=== PATIENT | female | born 1930 | race Caucasian/White ===

== ENCOUNTER → 2016-09-13 | Outpatient (CLI) | payer OTHER ==
[~2016-09-13] MED LIST: ADULT LOW DOSE81 MG PO; BYSTOLIC 5 MG5 M1 PO; CALCIUM + D SO1 EACH PO; CALCIUM 600 +1 EAC5 PO; CIPRO250 M1 PO; CLEOCIN HCL150 MG PO; FIORICET 50-301 EACH PO; FISH OIL 1,001000 MG PO; FLEXERIL PO; LIPOFEN150 MG PO; LIVALO2 MG PO; METHOTREXATE 22.5 MG PO; MULTIVITAMINS PO; NEXIUM40 MG PO; NORCO 5-325 TA1 EACH PO; OCUVITE TABLET1 EAC1 PO; PLAVIX 75 MG TA75 M1 PO; PREDNISONE 10 M10 M1 PO; RANEXA500 MG PO; TRAMADOL 50 MG50 MG PO; ULTRAM 50MG TAB50 MG PO; VICODIN 5-5001 EACH PO; VITAMIN D2000 UNIT PO
== END ==
LOC: CAT 13:48
DX: R91.8 Other nonspecific abnormal finding of lung field (principal)

== ENCOUNTER → 2017-01-24 | Outpatient (CLI) | payer OTHER | LOC: RAD 15:33 | DX: I51.7 Cardiomegaly (principal) ==

== ENCOUNTER 2017-05-17 13:06 | Inpatient (IN) | payer OTHER ==
[~2017-05-17] VITALS: Ht 149.9 cm; Wt 57.6 kg
--- NOTE | ~2017-05-17 | HC ---
[facility] [place] [address] CONSULTATION Name: JIL DIAZ Room #: 434-P ADM IN M.R.#: [id number] Admission: 05/17/17 Attend Phys: Froy Pascal MD Discharge: Date of : 31 Report #: [id number] THIS REPORT FOR: //name// CC: Willem Pascal INFECTIOUS DISEASES CONSULTATION REASON FOR CONSULTATION: I was asked to evaluate concerning recurrent pneumonia. HISTORY OF PRESENT ILLNESS: The patient was an 86-year-old sister of Gregoria, who resides in [place], presents today with increasing shortness of breath, minimally productive cough. She has underlying coronary artery disease, status post coronary artery bypass grafting; mediastinal histoplasmosis and recurring pneumonia that has occurred over the last year. She resides in assisted living in [place]. Because of her increased cough and shortness of breath, she was hospitalized. Denies any travel. No history of tuberculosis. Has had previous breast cancer. In 2013, had undergone a mediastinoscopy for biopsy of her mediastinal lymph nodes, which showed granulomatous process and organisms consistent with histoplasma. She has a known hiatal hernia. Denies any symptoms of aspiration. PAST MEDICAL HISTORY: Bilateral mastectomies with left breast cancer, osteoporosis, appendectomy, diverticulitis, hiatal hernia, gastric ulcer, bilateral cataracts, macular degeneration, gastroesophageal reflux, coronary artery bypass grafting, hyperlipidemia and hypertension. ALLERGIES: PENICILLIN AND SULFA. Does not know if she tolerates cephalosporins. MEDICATIONS: As noted on her MAR, which were reviewed previous, was given Levaquin in the Emergency Room. FAMILY HISTORY: Noncontributory. SOCIAL HISTORY: Nonsmoker. No significant alcohol intake. REVIEW OF SYSTEMS: No nausea, vomiting, diarrhea, abdominal pain, dysuria or frequency. Has had some left anterior chest pain on deep inspiration. Denies any hemoptysis. No headache, change in mental status, rash or mucosal ulcers. PHYSICAL EXAMINATION: VITAL SIGNS: Afebrile and hemodynamically stable. Oxygen saturation on room air was normal. GENERAL: She was alert and cooperative. She was a reasonable historian. SKIN: Unremarkable. [facility] [address] [place] [address] CONSULTATION Name: JIL DIAZ Room #: 434-P [facility] IN .R.#: [id number] Admission: 05/17/17 Attend Phys: Froy Pascal MD Discharge: Date of : 31 Report #: [id number] LYMPH: Unremarkable. HEENT: Unremarkable. NECK: Supple. LUNGS: Crackles heard in the bases bilaterally, with no consolidation or rub. HEART: Regular, without murmur. ABDOMEN: Soft, nontender. No hepatosplenomegaly or mass. EXTREMITIES: Unremarkable. LABORATORY STUDIES: Sodium 130, potassium 4.2, bicarbonate at 24 and creatinine 1.9. Liver function test normal. BNP 2239. Troponin negative. Hemoglobin 9.2, WBC 6.5 and platelet count is 257,000. Chest x-ray, bilateral lower lobe infiltrates, left greater than right. Blood culture and sputum culture pending. IMPRESSION: Bilateral pulmonary infiltrates with multiple potential causes to include aspiration pneumonia, histoplasma, community-acquired pneumonia. THE PATIENT HAS ALLERGY TO SULFA AND PENICILLIN. Would also be concerned about progression of her mediastinal adenopathy. RECOMMENDATIONS: We will continue with antibiotic coverage, including Levaquin and clindamycin. Repeat CT scan of the chest. Check sedimentation rate, histoplasma titer, urine antigen and viral respiratory panel. Agree with video swallow to assess for aspiration. <ELECTRONICALLY SIGNED> By: Evan Umanzor MD 05/21/17 1240 2211 2338 Evan Umanzor MD /nt
--- NOTE | ~2017-05-17 | HC ---
[facility] [place] [address] CONSULTATION Name: JIL DIAZ Room #: 434-P [facility] IN M.R.#: [id number] Admission: 05/17/17 Attend Phys: Froy Pascal MD Discharge: 05/23/17 Date of : 31 Report #: [id number] THIS REPORT FOR: //name// CC: Willem Pascal REASON FOR CONSULTATION: Hyponatremia. REASON FOR PRESENTATION: Shortness of breath. HISTORY OF PRESENT ILLNESS: An 86-year-old with extensive past medical history including bilateral mastectomy for breast cancer, chronic kidney disease with a baseline creatinine of around 1.5, hypertension, hyperlipidemia, status post coronary artery bypass graft. She presented complaining of worsening shortness of breath and was found to have pneumonitis that seems to be recurrent over the last year. This was associated with cough. She had this pneumonitis worked up in the past with a biopsy for the lymph nodes that showed granulomatous process with organisms consistent with histoplasmosis. On presentation, the sodium was stable at 130 and this continued to drop down to 119. I am being asked to evaluate accordingly. As I have stated, she does have a diagnosis of chronic kidney disease with a baseline creatinine of around 1.7 based on her previous values. PAST MEDICAL HISTORY: 1. Breast cancer status post bilateral mastectomy. 2. Appendectomy. 3. Hypertension. 4. Stomach ulcers. 5. Cataract surgery. 6. Gastroesophageal reflux disease. 7. Coronary artery disease post stenting then coronary artery bypass graft. 8. Hyperlipidemia. MEDICATIONS ON PRESENTATION: Plavix, aspirin, Bystolic, esomeprazole, Ranexa. ALLERGIES: PENICILLIN, SULFA. REVIEW OF SYSTEMS: GENERAL: Significant for weakness. CARDIOVASCULAR: Significant for shortness of breath. PULMONARY: Cough and shortness of breath. GASTROINTESTINAL: No nausea or vomiting. GENITOURINARY: No frequency or urgency. MUSCULOSKELETAL: No back pain, no joints pain. SKIN: No rash or ulcerations. NEUROLOGICAL: Some weakness. [facility] [address] [place] [address] CONSULTATION Name: JIL DIAZANOR Room #: 434-P [facility] IN [facility].#: [id number] Admission: 05/17/17 Attend Phys: Froy Pascal MD Discharge: 05/23/17 Date of : 31 Report #: [id number] FAMILY HISTORY: Significant for hypertension. PHYSICAL EXAMINATION: GENERAL: She is alert, oriented, in no apparent distress. VITAL SIGNS: Most recent blood pressure 153/63, temperature 36.3. HEAD AND NECK: No jugular venous distention, no bruit, no thyromegaly. CHEST: Decreased air entry bilaterally with rhonchi. CARDIOVASCULAR: Regular, with no rub detected. ABDOMEN: Soft, nontender. No hepatosplenomegaly. LOWER EXTREMITIES: Trace edema. LABORATORY DATA: Reviewed. Sodium is stable at 119. She has mild acidosis with a carbon dioxide of 19, BUN is 31, creatinine of 1.7. IMAGING: Including her swallowing studies, CT is reviewed, renal ultrasound reviewed. ASSESSMENT, IMPRESSION, PLAN: 1. Hyponatremia. 2. Chronic kidney disease. 3. History of recurrent pneumonitis with biopsy proven histo in the past. 4. History of bilateral mastectomy for breast cancer. 5. We will initiate the appropriate workup for hyponatremia with blood studies, thyroid studies. 6. Fluid restriction. 7. Salt tablets. 8. One time Lasix. We will continue to follow along. <ELECTRONICALLY SIGNED> By: William Presley MD 05/30/17 0939 1018 1101 William Presley MD /nt
--- NOTE | ~2017-05-17 | S ---
[facility] [place] [address] SURGICAL PATH RPT PROCEDURE Name: JIL KLINE KARISSA Room #: 434-P DIS IN M.R.#: [id number] Admission: 05/17/17 Date of : 31 Discharge: 05/23/17 Report #: [id number] Path Case #: [id number] PATHOLOGY REPORT COLLECTION DATE: 05/23/2017 RECEIVED DATE: 05/24/2017 SUBMITTING PHYS: Dr. Marcai Ríos OTHER PHYS: Dr. Froy Staples SPECIMEN(S) RECEIVED: A.Bx of antral * * * * * * * * * * * * FINAL DIAGNOSIS: Gastric mucosa, antral erythema, endoscopic biopsy: - Moderate reactive gastropathy with fibrotic lamina propria and congested vessels within lamina propria, history of antral erythema. - Focal intestinal metaplasia present. - Negative for atrophy, or dysplasia. - Negative for Helicobacter pylori. COMMENT: Well controlled Helicobacter pylori immunohistochemical stain performed on block A1 - negative. (IUV:pit; 05/25/2017) PATHOLOGIST: Aracelis Coelho M.D. REPORT ELECTRONICALLY SIGNED BY: Aracelis Coelho M.D. DATE/TIME: 05/25/2017 13:43 * * * * * * * * * * * * GROSS PATHOLOGY: The specimen is received in formalin, labeled "Jil Kline, BX of antral erythema," and consists of 2 fragments of mackay soft tissue measuring 0.5 x 0.4 x 0.1 cm and 0.3 x 0.2 x 0.1 cm. They are entirely submitted in cassette A1. (SDY; 05/24/2017) CLINICAL HISTORY: Dysphagia Gastritis INITIAL CPT CODE(S): A; 49495, 75358 [facility] [address] [facility] [place] [address] SURGICAL PATH RPT PROCEDURE Name: JIL KLINEANOR Room #: 434-P DIS IN M.R.#: [id number] Admission: 05/17/17 Date of : 31 Discharge: 05/23/17 Report #: [id number] Path Case #: [id number] Professional services performed by [facility] at [address] [place], [place] [address] Technical services performed by [facility] at [address] [place] [address], [facility] [address] [address]. [facility] [address] [place] [address] PHONE: [phone] DIRECTOR: Vinnie Lang M.D. * * * END OF REPORT * * *
--- NOTE | ~2017-05-17 | P ---
[facility] [place] [address] PROCEDURE REPORT Name: JIL DIAZ Room #: 434-P [facility] IN M.R.#: [id number] Admission: 05/17/17 Attend Phys: Froy Pascal MD Discharge: 05/23/17 Date of : 31 Report #: [id number] THIS REPORT FOR: //name// CC: Willem Jhoanradha Shah MD DATE OF SERVICE: 05/23/2017 EGD with biopsies and esophageal dilatation: The patient of Dr. Froy Pascal. 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 EGD is being performed to try to identify this and dilate it. Informed consent for this procedure was obtained prior to the administration of any medication. The risks of the procedure which include bleeding, perforation, infection, complications of sedation and the possibility I could miss something have been explained to the patient. She has indicated her consent by signing. Propofol was slowly titrated before and during this procedure for patient comfort by the anesthesia service. The ShowMe.tvn upper videoscope was introduced through the upper esophageal sphincter and advanced under direct visualization to the descending duodenum. Findings are noted on withdrawal of the scope. The duodenal mucosa appears normal throughout its entirety. Pylorus, normal mucosa. Antrum, in the prepyloric area of the antrum, there is erythematous mucosa and biopsies were obtained x 2 from this prepyloric erythema for histopathology. Good hemostasis was noted after those biopsies. Body, normal mucosa. Cardia and fundus, normal mucosa. Retroflex view does reveal the presence of a hiatal hernia. Scope was withdrawn to the esophagus. The Z-line is appropriately located at the top of the gastric folds and this is at 30 cm from the incisors. I think the hiatal hernia has posterior esophagus significantly up into her chest. The entire esophagus is very tortuous because of this hiatal hernia and its disposition of the esophagus. The esophageal mucosa itself appears normal throughout its entirety and there did seem to be a narrowing of the very proximal esophagus at the level of the cricopharyngeal muscles. The scope was advanced down into the stomach. Again, a guidewire was advanced through the scope. The scope was withdrawn over the guidewire. Then, a #48 Arabic and subsequently a #51 Arabic Savary dilators were passed over the guidewire without difficulty. The guidewire and the dilators were removed. Then, the Fujinon upper videoscope was reintroduced through the upper esophageal sphincter much easier this time and advanced under direct visualization down to the duodenal bulb again. Findings are noted on withdrawal of the scope. The duodenal bulb [address] [address] PROCEDURE REPORT Name: JIL DIAZANOR Room #: 434-P [facility] IN M.R.#: [id number] Admission: 05/17/17 Attend Phys: Froy Pascal MD Discharge: 05/23/17 Date of : 31 Report #: [id number] appears normal. Pylorus, normal mucosa. Antrum, erythematous mucosa as before. Body, normal mucosa. Cardia and fundus, normal mucosa. Retroflex view did not reveal any abnormalities. The scope was withdrawn to the esophagus. The Z-line is located similarly as before. The esophageal mucosa appears normal throughout its entirety. The scope was withdrawn. The patient went to the recovery area in stable condition. She tolerated the procedure well. IMPRESSION: 1. Antral erythema, prepyloric area. 2. Passage of a #48 Arabic and #51 Arabic Savary dilators over a guidewire as above in an attempt to stretch the cricopharyngeal muscles so that her solid food dysphagia will resolve, this will not likely help with her liquid dysphagia and aspiration, however. My recommendations were for her to resume her previous diet and medications. Thank you very much once again for allowing me to participate in her care. <ELECTRONICALLY SIGNED> By: Marcia Ríos DO 05/24/17 2134 1456 0144 Marcia Ríos DO /nt
--- NOTE | ~2017-05-17 | 2DMMODE ---
[facility] [address] [place] [address] 2 D/M-MODE ECHOCARDIOGRAM Name: JIL DIAZ Room #: 434-P [facility] IN ..#: [id number] Admission: 05/17/17 Attend Phys: Froy Pascal MD Discharge: Date of : 31 Date of Service: 05/21/17 1323 Report #: [id number] THIS REPORT FOR: //name// APPROVED REPORT Study performed: 05/21/2017 11:15:17 EXAM: Comprehensive 2D, Doppler, and color-flow Echocardiogram Patient Location: Bedside Room #: 434 Status: routine BSA: 1.52 BP: 176/96 mmHg Other Information Study Quality: Good Indications Dyspnea CAD Hypertension/HDD CABG 2D Dimensions RVDd: 42.41 mm LVEF(%): 52.05 (>50%) IVSd: 12.04 (7-11mm) LVOT Diam: 16.61 (18-24mm) LVDd: 40.18 mm PWd: 12.64 (7-11mm) Ascending Ao: 25.52 (22-36mm) LVDs: 29.62 (25-40mm) Aortic Root: 23.74 mm IVC: 16.00 mm House's LVEF: 52.05 % Volumes Left Atrial Volume (Systole) Single Plane 4CH: 56.74 mL Single Plane 2CH: 60.24 mL LA ESV Index: 41.00 mL/m2 Aortic Valve AoV Peak Carter.: 1.91 m/s AO Peak Gr.: 15.66 mmHg LVOT Max P.46 mmHg LVOT Max V: 0.78 m/s KALEE Vmax: 0.89 cm2 Mitral Valve [facility] [place] [address] [place] [address] 2 D/M-MODE ECHOCARDIOGRAM Name: JIL DIAZANOR Room #: 434-P [facility] IN ..#: [id number] Admission: 05/17/17 Attend Phys: Froy Pascal MD Discharge: Date of : 31 Date of Service: 05/21/17 1323 Report #: [id number] E/A Ratio: 1.4 MV Decel. Time: 129.65 ms MV E Max Carter.: 1.45 m/s MV A Carter.: 1.05 m/s MV PHT: 37.60 ms IVRT: 83.04 ms Pulmonary Valve PV Peak Carter.: 1.08 m/s PV Peak Gr.: 4.65 mmHg Pulmonary Vein P Vein S: 0.57 m/s P Vein D: 0.92 m/s P Vein S/D Ratio: 0.62 Tricuspid Valve TR Peak Carter.: 3.25 m/s RAP Estimate: 5.00 mmHg TR Peak Gr.: 42.29 mmHg PA Pressure: 47.00 mmHg Left Ventricle The left ventricle is normal size. Regional wall motion is grossly normal. Mild concentric left ventricular hypertrophy. The left ventricular systolic function is normal. The left ventricular ejection fraction is within the normal range. LVEF is 55%. Grade II - pseudonormal filling dynamics. Right Ventricle Right ventricle is dilated. The right ventricular systolic function is normal. Atria Left atrium is dilated. Right atrium size is normal. Aortic Valve The Aortic valve is mildly calcified. Trace to mild aortic regurgitation. There is no aortic valvular stenosis. Mitral Valve Mild mitral annular calcification Moderate to moderately severe mitral regurgitation. No evidence of mitral valve stenosis. Tricuspid Valve The tricuspid valve is normal in structure. Moderate to severe tricuspid regurgitation. PAP is estimated at [address] [address] 2 D/M-MODE ECHOCARDIOGRAM Name: JIL DIAZ KARISSA Room #: 434-P [facility] IN ..#: [id number] Admission: 05/17/17 Attend Phys: Froy Pascal MD Discharge: Date of : 31 Date of Service: 05/21/17 1323 Report #: [id number] Pulmonic Valve The pulmonary valve is normal in structure. Trace pulmonic regurgitation. Great Vessels The aortic root is normal in size. IVC is normal in size and collapses >50% with inspiration. Pericardium There is no pericardial effusion. <Conclusion> The left ventricular systolic function is normal. Regional wall motion is grossly normal. LVEF is 55%. Grade II diastolic dysfunction Right ventricle is mildly dilated. Left atrium is dilated. The aortic valve is mildly calcified. Trace to mild aortic regurgitation, no stenosis. Mild mitral annular calcification. Moderate to moderately severe mitral regurgitation. Moderate to severe tricuspid regurgitation. PAP is estimated at 47 mmHg. There is no pericardial effusion. <ELECTRONICALLY SIGNED> By: Timbo Dong MD, FACC 05/21/17 1323 22 132 Timbo Dong MD, FACC /INF
--- NOTE | ~2017-05-17 | EKG ---
[place] [address] [address] [facility] [email or web address] [address] ELECTROCARDIOGRAM REPORT Name: JIL DIAZ Room #: 170-7 ADM IN M.R.#: [id number] Admission: 05/17/17 Attend Phys: Froy Pascal MD Discharge: Date of : 31 Report #: [id number] THIS REPORT FOR: //name// [facility] ED Test Date: 2017-05-17 Test Time: 15:01:07 Pat Name: JIL DIAZ Department: Room: 170 Gender: F Failure Analysis Technician: MZOOK : 1930 Requested By: Evan Butler Order Number: [id number] MD: Timbo Dong Measurements Intervals [place] Rate: 64 P: 0 MA: 237 QRS: -16 QRSD: 122 T: 47 QT: 488 QTc: 504 Interpretive Statements Sinus rhythm Prolonged MA interval Nonspecific T abnrm, anterolateral leads Compared to ECG 12/25/2012 07:45:48 First degree AV block now present Electronically Signed On 05-17-2017 17:08:08 MILLER APPRENTICE by Timbo Dong [email or web address] <ELECTRONICALLY SIGNED> By: Timbo Dong MD, [facility] 05/17/17 2198 1501 1501 Timbo Dong MD, [facility] /EPI
--- NOTE | ~2017-05-17 | HC ---
[facility] [place] [address] CONSULTATION Name: JIL DIAZ Room #: 434-P ADM IN M.R.#: [id number] Admission: 05/17/17 Attend Phys: Froy Pascal MD Discharge: Date of : 31 Report #: [id number] THIS REPORT FOR: //name// CC: Willem Staples Ricardo Crawford DATE OF SERVICE: 05/17/2017 REFERRING PROVIDER: Ricardo Gamble MD REASON FOR CONSULTATION: Pneumonia. CHIEF COMPLAINT: Shortness of breath. HISTORY OF PRESENT ILLNESS: Our group was asked to see the patient in consultation while hospitalized at [facility]. A pleasant 86-year-old woman followed by my partner, Dr. Cliff Johnson in our office for recurrent pneumonias, but has not had any for quite some time. She had been in her usual state of health, reasonably functional; however, states she had a recent fall several months ago while in [place], required some rehabilitative care, no significant fractures. About two days ago, she started having some increasing shortness of breath and nonproductive cough. No fevers, chills or sweats. Some wheezes and some chest tightness associated with severe coughing. She does have a known history of coronary artery disease, but has not had any ischemic chest pain. Denies any reflux complaints at this time. She does have a history of significant hiatal hernia. No recent problems with myocardial ischemia or pneumonias in the past few years. ALLERGIES: INCLUDE PENICILLIN AND SULFA. PAST MEDICAL HISTORY: 1. History of breast cancer. 2. Coronary artery disease. 3. History of diverticulosis. 4. Hyperlipidemia. 5. Hypertension. PAST SURGICAL HISTORY: Includes: 1. Mastectomy in 1999. 2. History of coronary stent placement in 2012. 3. Coronary artery bypass grafting x 3 in 2007. SOCIAL HISTORY: The patient is a never smoker, no alcohol consumption. 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 [facility] [address] [place] [address] CONSULTATION Name: JIL DIAZ Room #: 434-P [facility] IN M.R.#: [id number] Admission: 05/17/17 Attend Phys: Froy Pascal MD Discharge: Date of : 31 Report #: [id number] FAMILY HISTORY: Noncontributory due to advanced age. REVIEW OF SYSTEMS: CONSTITUTIONAL: Denies any fevers, chills or sweats. ENT: No upper respiratory congestion, rhinorrhea or dysphagia. CARDIOVASCULAR: Chest pain as described in the HPI. GASTROINTESTINAL: History of hiatal hernia. Denies any significant reflux, nausea or vomiting. GENITOURINARY: No dysuria and no frequency. INTEGUMENT: Denies any new rash. MUSCULOSKELETAL: No new joint pains or swelling, recent weakness and falls noted, but states she is back to baseline, volunteering again. PHYSICAL EXAMINATION: VITAL SIGNS: Afebrile, pulse 70s, respiratory rate 20, blood pressure 171/80 and oxygen saturation 100% on room air. GENERAL: This is a pleasant elderly woman in no distress. ENT: Clear oropharynx. No thrush. Mallampati 2 airway. NECK: Supple, no lymphadenopathy. BACK: Revealed some kyphosis. LUNGS: Diminished with basilar inspiratory crackles, left greater than right. No significant wheezes. CARDIOVASCULAR: Heart is regular. No murmurs noted. ABDOMEN: Soft, nontender and no masses. EXTREMITIES: With no significant edema. They are warm with 2+ pulses. INTEGUMENT: Without rash. LABORATORY DATA: Chest x-ray reveals significant left atrial enlargement, splaying of the fidel, prior sternotomy, large hiatal hernia, left greater than right basilar infiltrates noted and poor inspiratory effort, kyphosis of the thoracic spine. White blood cell count 7000, hemoglobin 9, hematocrit 26 and platelet count 257. Sodium 130, potassium 4.2, chloride 96, bicarbonate 24, BUN 23, creatinine 1.9 and glucose 119. ProBNP 2239. Albumin normal. IMPRESSION: 1. 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 2. Anemia. 3. History of coronary artery disease. SUGGESTIONS: 1. Respiratory viral panel. 2. Sputum and blood cultures. 3. Continue with Levaquin. [address] [address] CONSULTATION Name: JIL DIAZ Room #: 434-P [facility] IN M.R.#: [id number] Admission: 05/17/17 Attend Phys: Froy Pascal MD Discharge: Date of : 31 Report #: [id number] 4. Infectious Disease consultation. 5. Systemic steroids with taper. 6. Bronchodilators. 7. GI consult noted. 8. Inpatient care. 9. Follow up chest x-ray in the a.m. 10. Additional recommendation to follow. Thank you for requesting our suggestions. <ELECTRONICALLY SIGNED> By: Breezy Haney MD 05/18/17 1726 1811 0607 Breezy Haney MD /nt
--- NOTE | ~2017-05-17 | EKG ---
[address] [address] ELECTROCARDIOGRAM REPORT Name: JIL DIAZ Room #: 434-P ADM IN M.R.#: [id number] Admission: 05/17/17 Attend Phys: Froy Pascal MD Discharge: Date of : 32 Report #: [id number] THIS REPORT FOR: //name// [facility] Test Date: 2017-05-18 Test Time: 09:33:42 Pat Name: JIL DIAZ Department: Room: 434 P Gender: F Coating Supervisor: CECILY : 1930 Requested By: Ricardo Gamble Order Number: [id number] MD: Jordon Pope Measurements Intervals [place] Rate: 82 P: 78 IA: 240 QRS: -14 QRSD: 96 T: 108 QT: 427 QTc: 499 Interpretive Statements Sinus rhythm Prolonged IA interval Borderline repolarization abnormality Borderline prolonged QT interval Compared to ECG 05/17/2017 15:01:07 No significant changes Electronically Signed On 05-19-2017 8:21:53 [employer] by Jordon Pope [email or web address] <ELECTRONICALLY SIGNED> By: Jordon Pope MD 05/19/17 08 2 2 MD CORNELL Rodriguez
[2017-05-17 13:17] VITALS: BP 171/80
[2017-05-17 15:15] LABS: HEMOGLOBIN 9.2 gm/dL (12.0-15.0); MCH 28.1 pg (26.0-34.0); MCHC 35.3 g/dL (28.0-37.0); MCV 79.7 fL (80.0-100.0); PLATELET COUNT 257 thou/uL (150-400); RBC 3.27 mil/uL (4.20-5.00); RDW 14.4 % (10.5-14.5); WBC 6.5 thou/uL (4.0-11.0)
[2017-05-17 15:24] LABS: ANION GAP 10 mmol/L (7-16); BUN 23 mg/dL (7-18); CALCIUM 9.2 mg/dL (8.5-10.1); CHLORIDE 96 mmol/L (98-107); CO2 24 mmol/L (21-32); CREATININE 1.9 mg/dL (0.6-1.0); GLUCOSE 119 mg/dL (74-106); POTASSIUM 4.2 mmol/L (3.5-5.1); SODIUM 130 mmol/L (136-145)
[2017-05-17 15:32] LABS: ALBUMIN 3.8 g/dL (3.4-5.0); MAGNESIUM 1.9 mg/dL (1.8-2.4); SGOT 14 U/L (15-37); SGPT 17 U/L (30-65); TOTAL BILIRUBIN 0.3 mg/dL (<0.1-1.0); TOTAL PROTEIN 7.4 g/dL (6.4-8.2); TROPONIN-I < 0.04 ng/mL (<0.06)
[2017-05-17 15:47] LABS: ABSOLUTE NEUTROPHILS 5.8 thou/uL (1.4-8.2)
[2017-05-17 15:48] LABS: ANISOCYTOSIS 1+; HYPOCHROMASIA 1+; MICROCYTES 1+; POLYCHROMASIA OCCASIONAL
[2017-05-17] MEDS ORDERED: PROTONIX40 M1 PO (17:24)
[2017-05-17] MEDS ORDERED: PRAVACHOL20 MG PO (17:24)
[2017-05-17] MEDS ORDERED: ERGOCALCIF50000 UNIT PO (17:24)
[2017-05-17] MEDS ORDERED: RANEXA500 MG PO (17:31)
[2017-05-17 18:25] VITALS: BP 151/61
[2017-05-17 19:34] VITALS: BP 166/52
[2017-05-17 20:13] VITALS: BP 167/72
[2017-05-18 01:39] VITALS: BP 144/64
[2017-05-18 06:03] VITALS: BP 136/51
[2017-05-18 07:15] VITALS: BP 122/69
[2017-05-18 16:15] VITALS: BP 129/62
[2017-05-18 19:33] VITALS: BP 123/58
[2017-05-19 05:34] VITALS: BP 118/48
[2017-05-19 07:15] VITALS: BP 153/71
[2017-05-19 16:00] VITALS: BP 124/53
[2017-05-19 19:32] LABS: URINE BILIRUBIN NEGATIVE (Negative); URINE BLOOD NEGATIVE (Negative); URINE CLARITY CLEAR; URINE COLOR YELLOW; URINE GLUCOSE-RANDOM* NEGATIVE (Negative); URINE KETONES NEGATIVE (Negative); URINE LEUKOCYTES-REFLEX NEGATIVE (Negative); URINE NITRITE-REFLEX NEGATIVE (Negative); URINE PROTEIN (DIPSTICK) NEGATIVE (Negative); URINE SPECIFIC GRAVITY 1.025 (1.005-1.035); URINE UROBILINOGEN 0.2 E.U./dl (0.2-1.0)
[2017-05-19 20:18] VITALS: BP 134/98
[2017-05-20 04:07] LABS: HEMATOCRIT 20.7 % (37.0-47.0); HEMOGLOBIN 7.3 gm/dL (12.0-15.0); MCH 27.2 pg (26.0-34.0); MCHC 35.5 g/dL (28.0-37.0); MCV 76.6 fL (80.0-100.0); RBC 2.7 mil/uL (4.20-5.00); RDW 14.8 % (10.5-14.5); WBC 10.1 thou/uL (4.0-11.0)
[2017-05-20 04:26] LABS: ALBUMIN 3.1 g/dL (3.4-5.0); CALCIUM 7.9 mg/dL (8.5-10.1); PHOSPHORUS 4.3 mg/dL (2.5-4.9); POTASSIUM 4.9 mmol/L (3.5-5.1)
[2017-05-20 04:35] VITALS: BP 161/72
[2017-05-20 06:29] LABS: CALCIUM 7.8 mg/dL (8.5-10.1); CREATININE 2.1 mg/dL (0.6-1.0); POTASSIUM 4.8 mmol/L (3.5-5.1)
[2017-05-20 07:10] VITALS: BP 145/70
[2017-05-20 12:48] LABS: URINE BILIRUBIN NEGATIVE (Negative); URINE BLOOD NEGATIVE (Negative); URINE CLARITY CLEAR; URINE COLOR YELLOW; URINE GLUCOSE-RANDOM* NEGATIVE (Negative); URINE KETONES NEGATIVE (Negative); URINE LEUKOCYTES NEGATIVE (Negative); URINE NITRITE NEGATIVE (Negative); URINE PROTEIN (DIPSTICK) NEGATIVE (Negative); URINE SPECIFIC GRAVITY 1.015 (1.005-1.035); URINE UROBILINOGEN 0.2 E.U./dl (0.2-1.0)
[2017-05-20 12:53] LABS: URINE PROTEIN-RANDOM* 15.6 mg/dL (<11.9)
[2017-05-20 15:18] VITALS: BP 158/64
[2017-05-20 19:37] VITALS: BP 130/53
[2017-05-21 04:26] VITALS: BP 151/78
[2017-05-21 05:29] LABS: ALBUMIN 3.3 g/dL (3.4-5.0); CALCIUM 8.1 mg/dL (8.5-10.1); CREATININE 1.8 mg/dL (0.6-1.0); PHOSPHORUS 4.1 mg/dL (2.5-4.9); POTASSIUM 4.7 mmol/L (3.5-5.1); TOTAL BILIRUBIN 0.4 mg/dL (<0.1-1.0)
[2017-05-21 09:07] VITALS: BP 176/96
[2017-05-21 15:42] VITALS: BP 143/72
[2017-05-21 19:08] LABS: HISTOPLASMA MYCELIAL-ID Negative (Negative)
[2017-05-21 19:38] VITALS: BP 174/75
[2017-05-22 03:08] VITALS: BP 154/82
[2017-05-22 05:43] LABS: HEMATOCRIT 23.7 % (37.0-47.0); HEMOGLOBIN 8.1 gm/dL (12.0-15.0); MCH 27.1 pg (26.0-34.0); MCHC 34.2 g/dL (28.0-37.0); MCV 79.3 fL (80.0-100.0); PLATELET COUNT 289 thou/uL (150-400); RBC 2.99 mil/uL (4.20-5.00); RDW 14.5 % (10.5-14.5)
[2017-05-22 05:55] LABS: CALCIUM 8.3 mg/dL (8.5-10.1); CREATININE 1.7 mg/dL (0.6-1.0); POTASSIUM 4.4 mmol/L (3.5-5.1)
[2017-05-22 07:05] VITALS: BP 153/63
[2017-05-22 07:41] LABS: ABSOLUTE NEUTROPHILS 8.8 thou/uL (1.4-8.2); ANISOCYTOSIS 1+; ATYPICAL LYMPHS 1 %; MICROCYTES 1+
[2017-05-22 10:54] LABS: ALBUMIN 3.2 g/dL (3.4-5.0); CALCIUM 8.2 mg/dL (8.5-10.1); CREATININE 1.9 mg/dL (0.6-1.0); POTASSIUM 4.4 mmol/L (3.5-5.1)
[2017-05-22 10:56] LABS: % SATURATION 7 % (20-39); IRON 21 ug/dL (50-170); TIBC 314 ug/dL (250-450)
[2017-05-22 15:25] VITALS: BP 148/63
[2017-05-22 19:44] VITALS: BP 157/78
[2017-05-22 21:10] LABS: HISTOPLASMA MYCELIAL-CF Negative (Neg:<1:2)
[2017-05-23 01:09] LABS: ADENOVIRUS Negative (Negative); INFLUENZA A Negative (Negative); INFLUENZA B Negative (Negative); METAPNEUMOVIRUS Negative (Negative); PARAINFLUENZA 1 Negative (Negative); PARAINFLUENZA 2 Negative (Negative); PARAINFLUENZA 3 Negative (Negative); RHINOVIRUS Negative (Negative); RSV A Negative (Negative); RSV B Negative (Negative)
[2017-05-23 03:24] VITALS: BP 148/63
[2017-05-23 05:28] LABS: BASOPHILS 0.1 % (0.0-2.0); EOSINOPHILS 0.2 % (0.0-3.0); HEMATOCRIT 23.5 % (37.0-47.0); HEMOGLOBIN 7.9 gm/dL (12.0-15.0); LYMPHOCYTES 8.1 % (24.0-44.0); MCH 26.5 pg (26.0-34.0); MCHC 33.6 g/dL (28.0-37.0); MCV 78.7 fL (80.0-100.0); MONOCYTES 11.6 % (1.0-8.0); PLATELET COUNT 246 thou/uL (150-400); RBC 2.98 mil/uL (4.20-5.00); RDW 14.4 % (10.5-14.5); WBC 8.7 thou/uL (4.0-11.0)
[2017-05-23 05:38] LABS: CALCIUM 8.3 mg/dL (8.5-10.1); CREATININE 1.8 mg/dL (0.6-1.0); POTASSIUM 3.7 mmol/L (3.5-5.1)
[2017-05-23 07:54] VITALS: BP 143/59
[2017-05-23] MEDS ORDERED: CLEOCIN HCL150 MG PO (08:37)
[2017-05-23] MEDS ORDERED: LEVAQUIN 500 M500 M1 PO (08:37)
[2017-05-23] MEDS ORDERED: SODIUM CHLORIDE1 GM PO (08:37)
[2017-05-23 15:02] VITALS: BP 143/59
== END 2017-05-23 17:09 | disposition home or self-care (01) | DRG 177 ==
LOC: ER 13:06 → EROBS 16:20 → 4S 16:20 → ENTRNSPT 05-23 15:51 → EDTRNSPTSTS 05-23 15:53 → 4S 05-23 17:09
PROVIDERS: Emergency Medicine; Family Medicine; Hospitalist; Internal Medicine; Internal Medicine Pulmonary Disease; Nurse Practitioner; Nurse Practitioner Family; Specialist
PROC: 0D758ZZ Dilation of Esophagus, Via Natural or Artificial Opening Endoscopic (ICD-10-PCS; principal; 2017-05-23)
PROC: 0DB68ZX Excision of Stomach, Via Natural or Artificial Opening Endoscopic, Diagnostic (ICD-10-PCS; principal; 2017-05-23)
DX: J69.0 Pneumonitis due to inhalation of food and vomit (principal); E43 Unspecified severe protein-calorie malnutrition; E87.1 Hypo-osmolality and hyponatremia; N17.9 Acute kidney failure, unspecified; E87.2 Acidosis; M81.0 Age-related osteoporosis without current pathological fracture; Z96.1 Presence of intraocular lens; K21.9 Gastro-esophageal reflux disease without esophagitis; E78.00 Pure hypercholesterolemia, unspecified; H35.30 Unspecified macular degeneration; I12.9 Hypertensive chronic kidney disease with stage 1 through stage 4 chronic kidney disease, or unspecified chronic kidney disease; N18.9 Chronic kidney disease, unspecified; K57.90 Diverticulosis of intestine, part unspecified, without perforation or abscess without bleeding; I25.10 Atherosclerotic heart disease of native coronary artery without angina pectoris; K44.9 Diaphragmatic hernia without obstruction or gangrene; K80.20 Calculus of gallbladder without cholecystitis without obstruction; D50.9 Iron deficiency anemia, unspecified; E78.5 Hyperlipidemia, unspecified; Z95.1 Presence of aortocoronary bypass graft; Z90.13 Acquired absence of bilateral breasts and nipples; Z95.5 Presence of coronary angioplasty implant and graft; Z90.49 Acquired absence of other specified parts of digestive tract; Z98.42 Cataract extraction status, left eye; Z98.41 Cataract extraction status, right eye; Z85.3 Personal history of malignant neoplasm of breast; Z88.0 Allergy status to penicillin; Z88.2 Allergy status to sulfonamides
CPT/HCPCS: 10195; 62110; 62900; 70005